=== PATIENT | male | born 1965 | race African-American/Black ===

== ENCOUNTER 2017-09-19 08:28 | Emergency (ER) | payer OTHER | END 2017-09-19 09:21 | disposition home or self-care (01) | LOC: ERS 08:28 | DX: M25.552 Pain in left hip (principal); M25.512 Pain in left shoulder; W19.XXXA Unspecified fall, initial encounter | CPT/HCPCS: 99283 ==

== ENCOUNTER 2017-12-08 13:41 | Outpatient (CLI) | payer OTHER ==
[2017-12-08 14:48] LABS: #Eosinphils 0.2 thou/uL (0.0-0.7); #Lymphocytes 2.2 thou/uL (1.20-3.40); #Monocytes 0.6 thou/uL (0.11-0.59); %Basophils 0.5 % (0.0-1.0); %Eosinophils 2.4 % (0.0-10.0); %Lymphocytes 31.6 % (21.0-51.0); %Monocytes 8.5 % (0.0-10.0); Hemoglobin 13.7 g/dL (14.0-18.0); Mean Corpuscular HGB CONC 33.1 g/dL (32.0-36.0); Mean Corpuscular Hemoglobin 27.9 pg (27.0-31.0); Mean Corpuscular Volume 84.2 fL (78.0-98.0); Mean Platelet Volume 7.2 fL (7.4-10.4); Platelet Count 245 thou/uL (130-400); Red Blood Cell (RBC) Count 4.92 mill/uL (4.70-6.10); White Blood Cell (WBC) Count 6.9 thou/uL (4.8-10.8)
[2017-12-08 14:58] LABS: Anion Gap 11 mmol/L (10-20); BUN (Urea Nitrogen) 12 mg/dL (8.4-25.7); Calc. Creatinine Clearance 0 mL/min (70-130); Calcium 9.3 mg/dL (7.8-10.44); Carbon Dioxide 25 mmol/L (22-29); Chloride 107 mmol/L (98-107); Estimated GFR-MDRD 76; Glucose 103 mg/dL (70-105); Potassium 3.7 mmol/L (3.5-5.1); Sodium 139 mmol/L (136-145)
== END 2017-12-08 13:42 | disposition home or self-care (01) ==
LOC: LABBT 13:41
PROVIDERS: ATTEND Surgery
DX: Z01.818 Encounter for other preprocedural examination (principal); K40.90 Unilateral inguinal hernia, without obstruction or gangrene, not specified as recurrent
CPT/HCPCS: 80048; 85025; 93005; 93010

== ENCOUNTER → 2017-12-14 | Day surgery (SDC) | payer OTHER ==
[2017-12-08 14:03] VITALS: BMI 28.5
[~2017-12-14] MED LIST: Bupivacaine/Epinephrine 0.25% 30 ML VIAL ONE; CEFAZOLIN/Water 2 GM/20 ML SYRINGE ONE; Esmolol 100 MG/10 ML VIAL ONE; Fentanyl 100 MCG/2 ML VIAL ONE; Fentanyl 250 MCG/5 ML VIAL ONE; Glycopyrrolate 0.2 MG/ML 5 ML SYRINGE ONE; Ketorolac Tromethamine 30 MG/ML VIAL ONE; Lidocaine 1% PF 5 ML VIAL ONE; Metoclopramide HCl 10 MG/2 ML VIAL ONE; Ondansetron HCl/PF 4 MG/2 ML Vial ONE; PROPOFOL 200 MG/20 ML VIAL ONE
--- NOTE | 2017-12-14 12:09 | OP ---
DATE OF PROCEDURE: 12/14/2017 PREOPERATIVE DIAGNOSIS: Left inguinal hernia. POSTOPERATIVE DIAGNOSIS: Left inguinal hernia. PROCEDURE: Da Claudio laparoscopic left inguinal hernia repair with mesh, 3DMax large. SURGEON: Felipe Delarosa M.D. ANESTHESIA: General. ESTIMATED BLOOD LOSS: Minimal. COMPLICATIONS: None. SPECIMEN: None. FINDINGS: Left inguinal hernia. TECHNIQUE: The patient is taken to the operating room and placed supine on the table. After general anesthetic was obtained, the abdomen is prepped and draped in a sterile fashion. A Meyer catheter h ad been placed. Curved incision made above the umbilicus. Cautery dissected down to and score the f ascia. Abdominal cavity was bluntly using a Ramona clamp. Holding stitch is placed. Small letitia was made in the fascia. Achilles used to enter the abdomen. The patient had very thin belly wall and th e small intestinal loop was right behind the entrance site. This loop was brought up in the wound an d there was a little deep serosal tear which was oversewn using two 3-0 Vicryl sutures. It was not a full thickness injury and it is placed back in abdominal cavity. The 11 mm balloon trocar is placed and high-flow pneumoperitoneum was obtained. Left and right abdominal [address] d. All ports were docked to the robot. The surgeon goes to the console. The peritoneum was taken o ut in the left groin. The preperitoneal space is entered and bluntly dissected to the anterior iliac crest laterally and to pubic tubercle medially. The shelving edging of ligament was fully exposed. The indirect hernia was dissected high up onto the peritoneum away from the other cord structures. Cord lipoma was brought back in and out of the external ring as well. Three large mesh brought into the sterile field, placed in the abdominal cavity and labeled medial aspect is placed over pubic tube rcle medially. The mesh was laid out laterally to cover the femoral indirect and direct components. The mesh was sewn medially and laterally to the pubic tubercle medially and to the posterior fascia laterally using 2-0 Vicryl suture. The peritoneum is reapproximated using 3-0 Stratafix. All port s ites were infiltrated using local anesthetic. All needles were removed and accounted for. PDS was u sed to close the fascial defect above the umbilicus. All incisions were irrigated and closed using 4 -0 Monocryl and Dermabond. The patient was en route to recovery in stable condition. All instrument counts, needle counts, lap counts were correct.
== END ==
LOC: SDC 07:18
PROVIDERS: ATTEND Surgery
PROC: 0YU64JZ Supplement Left Inguinal Region with Synthetic Substitute, Percutaneous Endoscopic Approach (ICD-10-PCS; principal; 2017-12-14)
PROC: 8E0W4CZ Robotic Assisted Procedure of Trunk Region, Percutaneous Endoscopic Approach (ICD-10-PCS; principal; 2017-12-14)
DX: K40.90 Unilateral inguinal hernia, without obstruction or gangrene, not specified as recurrent (principal); E11.9 Type 2 diabetes mellitus without complications; Z79.84 Long term (current) use of oral hypoglycemic drugs; Z79.899 Other long term (current) drug therapy
CPT/HCPCS: 96374; C1781; J0131; J3010

== ENCOUNTER 2018-10-09 08:51 | Emergency (ER) | payer OTHER | END 2018-10-09 10:55 | disposition home or self-care (01) | LOC: ERS 08:51 | DX: L04.1 Acute lymphadenitis of trunk (principal); E11.9 Type 2 diabetes mellitus without complications; Z79.84 Long term (current) use of oral hypoglycemic drugs; E05.90 Thyrotoxicosis, unspecified without thyrotoxic crisis or storm; Z79.899 Other long term (current) drug therapy | CPT/HCPCS: 99283 ==

== ENCOUNTER 2025-02-12 06:31 | Emergency (ER) | payer OTHER | END 2025-02-12 08:51 | disposition home or self-care (01) | LOC: ERS 06:31 | DX: M87.88 Other osteonecrosis, other site (principal); M25.561 Pain in right knee | CPT/HCPCS: 96372; 99283 ==